=== PATIENT | male | born 1985 | race Two or more races ===

== ENCOUNTER 2019-03-26 23:27 | Inpatient (IN) | payer OTHER ==
[~2019-03-26] VITALS: Ht 180.3 cm; Wt 84.1 kg
[2019-03-26] MEDS ORDERED: CAPT12.55 PO (23:53)
[2019-03-27 00:11] LABS: BASOPHILS % (AUTO) 0.5 % (0.0-2.0); EOSINOPHILS % (AUTO) 0.1 % (1.0-6.0); HEMOGLOBIN 15.8 g/dL (13.5-17.5); LYMPHOCYTES # (AUTO) 2.1 K/uL (1.0-4.8); LYMPHOCYTES % (AUTO) 15.3 % (22.0-44.0); MEAN CORPUSCULAR HGB CONC 33.7 G/dL (31.0-37.0); MEAN CORPUSCULAR VOLUME 86 fL (80-100); MONOCYTES # (AUTO) 0.7 K/uL (0.1-1.0); NEUTROPHILS # (AUTO) 10.9 K/uL (1.8-7.7); NEUTROPHILS % (AUTO) 79.1 % (40.0-70.0); PLATELET COUNT (AUTO) 268 K/uL (150-450); RED BLOOD CELL COUNT(AUTO) 5.46 MIL/uL (4.50-5.90); RED CELL DISTRIBUTION WIDTH 13.5 % (11.5-14.5)
[2019-03-27 00:29] LABS: ANION GAP 10 mmol/L (8-16); CALCIUM, TOTAL 8.4 mg/dL (8.8-10.5); CARBON DIOXIDE 29 mmol/L (22-29); CHLORIDE 104 mmol/L (98-107); CREATININE 0.92 mg/dL (0.60-1.30); GLOMERULAR FILTR. RATE CALC > 60 mL/min (>60); GLUCOSE,RANDOM 105 mg/dL (70-110); SODIUM SERUM 143 mmol/L (136-145); UREA NITROGEN, BLOOD 11 mg/dL (7-18)
[2019-03-27] MEDS ORDERED: SODIUM CHLORIDE 0.9% 1,000 ML IV ONE ×3 (00:30→03:00)
[2019-03-27] MEDS ORDERED: ONDANSETRON HCL 4 MG/2 ML VIAL IVP ONE (00:30)
[2019-03-27 00:34] LABS: ALANINE AMINOTRANSFERASE 44 U/L (12-78); ALKALINE PHOSPHATASE 72 U/L (46-116); ASPARTATE AMINOTRANSFERASE 32 U/L (15-37); BILIRUBIN,TOTAL 0.4 mg/dL (0.1-1.0); TOTAL PROTEIN, SERUM 8.1 g/dL (6.4-8.2)
[2019-03-27] MEDS ORDERED: PB/HYOSCY/ATR/SCOP/LIDO/MAALOX 55 ML BOTTLE PO ONE (01:30)
[2019-03-27] MEDS ORDERED: KETOROLAC TROMETHAMINE 30 MG/ML VIAL IVP ONE (01:30)
[2019-03-27 03:33] LABS: APPEARANCE,URINE CLEAR (CLEAR); BILIRUBIN,URINE NEGATIVE (NEGATIVE); GLUCOSE, URINE (UA) NEGATIVE (NEGATIVE); KETONES,URINE TRACE mg/dL (NEGATIVE); LEUKOCYTE ESTERASE ,URINE NEGATIVE (NEGATIVE); NITRATE,URINE NEGATIVE (NEGATIVE); OCCULT BLOOD,URINE NEGATIVE (NEGATIVE); PROTEIN,URINE NEGATIVE (NEGATIVE)
[2019-03-27 03:38] LABS: AMPHET/METH SCREEN,URINE NEGATIVE (NEGATIVE); BARBITURATE SCREEN, URINE NEGATIVE (NEGATIVE); BENZODIAZEPINES SCREEN,URINE NEGATIVE (NEGATIVE); CANNABINOID SCREEN,URINE NEGATIVE (NEGATIVE); COCAINE SCREEN,URINE NEGATIVE (NEGATIVE); METHADONE SCREEN, URINE NEGATIVE (NEGATIVE); OPIATE SCREEN,URINE NEGATIVE (NEGATIVE)
[2019-03-27 03:48] LABS: PHENCYCLIDINE SCREEN,URINE NEGATIVE (NEGATIVE)
[2019-03-27] MEDS ORDERED: 0.9% SODIUM CHLORIDE 10 ML SYRINGE IVP PRN (06:00)
[2019-03-27 06:53] VITALS: BP 116/80
[2019-03-27 07:55] VITALS: BP 105/73
[2019-03-27] MEDS ORDERED: DEXTROSE 5%-0.45% SODIUM CHL 1,000 ML IV ONE (08:15)
[2019-03-27] MEDS ORDERED: ONDANSETRON HCL 4 MG/2 ML VIAL IM PRN (08:15)
[2019-03-27] MEDS: DOCUSATE SODIUM 100 MG CAPSULE PO SCH ×2 (09:16→20:04)
[2019-03-27] MEDS: FAMOTIDINE 20 MG TABLET PO SCH (09:16)
[2019-03-27] MEDS ORDERED: BISMUTH SUBSALICYLATE 524 MG/30 ML SUSPENSION UDCUP PO PRN (12:30)
[2019-03-27] MEDS: ACETAMINOPHEN 325 MG TABLET PO PRN (16:50)
[2019-03-27 16:55] VITALS: BP 109/65
[2019-03-27 19:40] VITALS: BP 108/61
[2019-03-27] MEDS: SERTRALINE HCL 50 MG TABLET PO SCH (20:04)
[2019-03-28 04:51] VITALS: BP 114/69
[2019-03-28 07:24] LABS: BASOPHILS % (AUTO) 0.5 % (0.0-2.0); HEMATOCRIT 45.3 % (41-53); HEMOGLOBIN 15.3 g/dL (13.5-17.5); LYMPHOCYTES # (AUTO) 2.1 K/uL (1.0-4.8); LYMPHOCYTES % (AUTO) 35.7 % (22.0-44.0); MEAN CORPUSCULAR HEMOGLOBIN 29.5 pg (26.0-34.0); MEAN CORPUSCULAR HGB CONC 33.7 G/dL (31.0-37.0); MEAN CORPUSCULAR VOLUME 87 fL (80-100); MONOCYTES # (AUTO) 0.4 K/uL (0.1-1.0); MONOCYTES % (AUTO) 6.6 % (2.0-9.0); NEUTROPHILS # (AUTO) 3.3 K/uL (1.8-7.7); NEUTROPHILS % (AUTO) 55.2 % (40.0-70.0); PLATELET COUNT (AUTO) 243 K/uL (150-450); RED BLOOD CELL COUNT(AUTO) 5.18 MIL/uL (4.50-5.90); RED CELL DISTRIBUTION WIDTH 13.5 % (11.5-14.5)
[2019-03-28 08:00] VITALS: BP 115/69
[2019-03-28] MEDS: FAMOTIDINE 20 MG TABLET PO SCH (08:16)
[2019-03-28] MEDS: SERTRALINE HCL 50 MG TABLET PO SCH ×2 (08:16→20:01)
[2019-03-28] MEDS: DOCUSATE SODIUM 100 MG CAPSULE PO SCH ×2 (08:16→21:00)
[2019-03-28] MEDS: ACETAMINOPHEN 325 MG TABLET PO PRN ×2 (12:09→19:34)
[2019-03-28] MEDS ORDERED: ONDANSETRON HCL 4 MG/2 ML VIAL IVP PRN (14:15)
[2019-03-28 15:27] VITALS: BP 112/69
[2019-03-28] MEDS: ALBUTEROL SULFATE HFA 90 MCG/PUFF 8 GM INHALER IH PRN (18:01)
[2019-03-28 19:30] VITALS: BP 118/68
[2019-03-29 04:00] VITALS: BP 110/73
[2019-03-29 07:30] VITALS: BP 112/71
[2019-03-29] MEDS: DOCUSATE SODIUM 100 MG CAPSULE PO SCH (08:45)
[2019-03-29] MEDS: FAMOTIDINE 20 MG TABLET PO SCH (08:45)
[2019-03-29] MEDS: SERTRALINE HCL 50 MG TABLET PO SCH (08:45)
[2019-03-29] MEDS ORDERED: SERT50TA12 PO (15:35)
[2019-03-29 15:41] VITALS: BP 126/78
[2019-03-29] MEDS: ACETAMINOPHEN 325 MG TABLET PO PRN (16:15)
[2019-03-29] MEDS: ALBUTEROL SULFATE HFA 90 MCG/PUFF 8 GM INHALER IH PRN (16:16)
== END 2019-03-29 16:40 | DRG 881 ==
LOC: EMS 23:27 → 6N 03-27 05:30 → 6S 03-27 06:41
PROVIDERS: ADMIT Internal Medicine; ATTEND Internal Medicine
DX: F32.9 Major depressive disorder, single episode, unspecified (principal); R45.851 Suicidal ideations; F43.12 Post-traumatic stress disorder, chronic; A08.4 Viral intestinal infection, unspecified; I10 Essential (primary) hypertension; F17.210 Nicotine dependence, cigarettes, uncomplicated; J45.909 Unspecified asthma, uncomplicated; Z79.899 Other long term (current) drug therapy; Z91.5 Personal history of self-harm
CPT/HCPCS: 51701; G0480; J1885; J2405; J3535; J7030

== ENCOUNTER 2019-05-14 23:37 | Inpatient (IN) | payer OTHER ==
[~2019-05-14] VITALS: Ht 180.3 cm; Wt 79.2 kg
[~2019-05-14 23:37] MED LIST: SERT50TA12 PO
[2019-05-15] MEDS ORDERED: BACITRACIN 0.9 GM PACKET OINTMENT TP ONE (01:15)
[2019-05-15] MEDS ORDERED: ONDANSETRON HCL 4 MG TABLET PO ONE (01:15)
[2019-05-15 01:49] LABS: BASOPHILS % (AUTO) 0.5 % (0.0-2.0); EOSINOPHILS % (AUTO) 0.3 % (1.0-6.0); HEMATOCRIT 46.1 % (41-53); HEMOGLOBIN 15.7 g/dL (13.5-17.5); LYMPHOCYTES # (AUTO) 1.9 K/uL (1.0-4.8); MEAN CORPUSCULAR HEMOGLOBIN 29.6 pg (26.0-34.0); MEAN CORPUSCULAR VOLUME 87 fL (80-100); MONOCYTES # (AUTO) 0.6 K/uL (0.1-1.0); MONOCYTES % (AUTO) 4.6 % (2.0-9.0); NEUTROPHILS % (AUTO) 79.6 % (40.0-70.0); PLATELET COUNT (AUTO) 247 K/uL (150-450); RED CELL DISTRIBUTION WIDTH 13.1 % (11.5-14.5)
[2019-05-15 01:54] LABS: ANION GAP 11 mmol/L (8-16); CALCIUM, TOTAL 8.8 mg/dL (8.8-10.5); CARBON DIOXIDE 27 mmol/L (22-29); CHLORIDE 104 mmol/L (98-107); CREATININE 1.02 mg/dL (0.60-1.30); GLOMERULAR FILTR. RATE CALC > 60 mL/min (>60); GLUCOSE,RANDOM 90 mg/dL (70-110); POTASSIUM 3.8 mmol/L (3.5-5.1); SODIUM SERUM 142 mmol/L (136-145); UREA NITROGEN, BLOOD 13 mg/dL (7-18)
[2019-05-15 02:01] LABS: ALANINE AMINOTRANSFERASE 53 U/L (12-78); ALBUMIN 3.9 g/dL (3.4-5.0); ALKALINE PHOSPHATASE 62 U/L (46-116); ASPARTATE AMINOTRANSFERASE 30 U/L (15-37); BILIRUBIN,TOTAL 0.6 mg/dL (0.1-1.0); TOTAL PROTEIN, SERUM 7.7 g/dL (6.4-8.2)
[2019-05-15] MEDS ORDERED: LORazepam 2 MG/ML VIAL ONE (02:01)
[2019-05-15] MEDS ORDERED: DiphenhydrAMINE HCL 50 MG/ML VIAL ONE (02:01)
[2019-05-15] MEDS ORDERED: HALOPERIDOL LACTATE 5 MG/ML VIAL ONE (02:01)
[2019-05-15] MEDS ORDERED: LORazepam 2 MG/ML VIAL IM ONE (02:15)
[2019-05-15] MEDS ORDERED: HALOPERIDOL LACTATE 5 MG/ML VIAL IM SCH (02:15)
[2019-05-15] MEDS ORDERED: DiphenhydrAMINE HCL 50 MG/ML VIAL IM SCH (02:15)
[2019-05-15] MEDS ORDERED: 0.9% SODIUM CHLORIDE 10 ML SYRINGE IVP PRN (02:30)
[2019-05-15] MEDS ORDERED: ONDANSETRON HCL 4 MG/2 ML VIAL IVP PRN ×2 (02:30→16:30)
[2019-05-15] MEDS ORDERED: ACETAMINOPHEN 325 MG TABLET PO PRN (02:30)
[2019-05-15 03:42] VITALS: BP 105/72
[2019-05-15 08:21] VITALS: BP 111/73
[2019-05-15 15:30] VITALS: BP 132/69
[2019-05-15] MEDS ORDERED: IPRATROPIUM BROMIDE 0.5 MG/2.5 ML NEB SOLUTION NEB PRN (16:30)
[2019-05-15] MEDS ORDERED: MAGNESIUM HYDROXIDE SUSPENSION 30 ML UDCUP PO PRN (16:30)
[2019-05-15] MEDS ORDERED: ALBUTEROL SULFATE 2.5 MG/0.5 ML NEB SOLUTION NEB PRN (16:30)
[2019-05-15] MEDS ORDERED: BISACODYL 10 MG RECTAL RECTAL SUPPOSITORY PR PRN (16:30)
[2019-05-15 20:33] VITALS: BP 126/75
[2019-05-15] MEDS: SERTRALINE HCL 50 MG TABLET PO SCH (20:59)
[2019-05-15] MEDS: DOCUSATE SODIUM 100 MG CAPSULE PO SCH (21:00)
[2019-05-15] MEDS: ZOLPIDEM TARTRATE 5 MG TABLET PO PRN (21:02)
[2019-05-16 05:58] VITALS: BP 117/70
[2019-05-16 07:58] VITALS: BP 116/76
[2019-05-16] MEDS: SERTRALINE HCL 50 MG TABLET PO SCH ×2 (08:45→20:42)
[2019-05-16] MEDS: DOCUSATE SODIUM 100 MG CAPSULE PO SCH ×2 (08:45→20:44)
[2019-05-16 16:20] VITALS: BP 118/82
[2019-05-16] MEDS: ACETAMINOPHEN 325 MG TABLET PO PRN (18:13)
[2019-05-16 20:12] VITALS: BP 119/78
[2019-05-16] MEDS: ZOLPIDEM TARTRATE 5 MG TABLET PO PRN (20:42)
[2019-05-17 03:58] VITALS: BP 114/75
[2019-05-17 08:13] VITALS: BP 121/82
[2019-05-17] MEDS: SERTRALINE HCL 50 MG TABLET PO SCH ×2 (08:17→20:29)
[2019-05-17] MEDS: DOCUSATE SODIUM 100 MG CAPSULE PO SCH ×2 (08:17→20:35)
[2019-05-17] MEDS: ONDANSETRON HCL 4 MG TABLET PO PRN ×2 (12:01→20:29)
[2019-05-17] MEDS: ACETAMINOPHEN 325 MG TABLET PO PRN (12:01)
[2019-05-17 17:09] VITALS: BP 126/77
[2019-05-17 19:15] VITALS: BP 132/83
[2019-05-17] MEDS: ZOLPIDEM TARTRATE 5 MG TABLET PO PRN (20:29)
[2019-05-18 04:29] VITALS: BP 117/74
[2019-05-18 06:57] LABS: BASOPHILS % (AUTO) 0.5 % (0.0-2.0); EOSINOPHILS % (AUTO) 1.5 % (1.0-6.0); HEMATOCRIT 45.2 % (41-53); HEMOGLOBIN 15.3 g/dL (13.5-17.5); LYMPHOCYTES # (AUTO) 2.9 K/uL (1.0-4.8); LYMPHOCYTES % (AUTO) 35.4 % (22.0-44.0); MEAN CORPUSCULAR HEMOGLOBIN 29.6 pg (26.0-34.0); MEAN CORPUSCULAR VOLUME 87 fL (80-100); MONOCYTES # (AUTO) 0.5 K/uL (0.1-1.0); MONOCYTES % (AUTO) 5.9 % (2.0-9.0); NEUTROPHILS # (AUTO) 4.6 K/uL (1.8-7.7); NEUTROPHILS % (AUTO) 56.7 % (40.0-70.0); PLATELET COUNT (AUTO) 238 K/uL (150-450); RED BLOOD CELL COUNT(AUTO) 5.19 MIL/uL (4.50-5.90); RED CELL DISTRIBUTION WIDTH 13.1 % (11.5-14.5)
[2019-05-18 07:36] VITALS: BP 120/72
[2019-05-18] MEDS: SERTRALINE HCL 50 MG TABLET PO SCH ×2 (08:56→20:24)
[2019-05-18] MEDS: ACETAMINOPHEN 325 MG TABLET PO PRN ×2 (08:56→20:24)
[2019-05-18] MEDS: DOCUSATE SODIUM 100 MG CAPSULE PO SCH ×2 (09:00→20:31)
[2019-05-18] MEDS: ONDANSETRON HCL 4 MG TABLET PO PRN ×2 (12:17→20:24)
[2019-05-18 12:18] VITALS: BP 125/80
[2019-05-18 16:32] VITALS: BP 122/74
[2019-05-18 19:25] VITALS: BP 116/80
[2019-05-18] MEDS ORDERED: MAG HYDROX/AL HYDROX/SIMETH ES 30 ML SUSPENSION UDCUP PO PRN (20:00)
[2019-05-18] MEDS: PANTOPRAZOLE SODIUM 40 MG DR TABLET PO SCH (20:23)
[2019-05-18] MEDS: ZOLPIDEM TARTRATE 5 MG TABLET PO PRN (20:24)
[2019-05-19 05:50] VITALS: BP 117/69
[2019-05-19] MEDS: PANTOPRAZOLE SODIUM 40 MG DR TABLET PO SCH (08:31)
[2019-05-19] MEDS: SERTRALINE HCL 50 MG TABLET PO SCH (08:31)
[2019-05-19] MEDS: DOCUSATE SODIUM 100 MG CAPSULE PO SCH (08:32)
[2019-05-19 08:48] VITALS: BP 104/72
[2019-05-19] MEDS ORDERED: RISP.5 PO (14:42)
[2019-05-19 15:28] VITALS: BP 129/78
[2019-05-19] MEDS: ACETAMINOPHEN 325 MG TABLET PO PRN (15:38)
== END 2019-05-19 18:30 | DRG 882 ==
LOC: EMS 23:37 → 6S 05-15 01:34
PROVIDERS: ADMIT Internal Medicine; ATTEND Internal Medicine
DX: F43.10 Post-traumatic stress disorder, unspecified (principal); R45.851 Suicidal ideations; I10 Essential (primary) hypertension; J45.909 Unspecified asthma, uncomplicated; K29.70 Gastritis, unspecified, without bleeding; K52.9 Noninfective gastroenteritis and colitis, unspecified; F17.210 Nicotine dependence, cigarettes, uncomplicated; F41.0 Panic disorder [episodic paroxysmal anxiety]; F41.9 Anxiety disorder, unspecified; X58.XXXA Exposure to other specified factors, initial encounter; Z91.5 Personal history of self-harm
CPT/HCPCS: 82271; 94640; 96372; G0480; J1200; J1630; J2060; Q0162

== ENCOUNTER 2019-05-19 22:03 | Inpatient (IN) | payer OTHER ==
[~2019-05-19] VITALS: Ht 175.3 cm; Wt 81.0 kg
[~2019-05-19 22:03] MED LIST changes: +RISP.5 PO
[2019-05-19] MEDS ORDERED: PERTUSS(ACELL),DIPH,TET VAC/PF 0.5 ML VIAL IM ONE (23:15)
[2019-05-20] MEDS ORDERED: HALOPERIDOL LACTATE 5 MG/ML VIAL ONE (00:09)
[2019-05-20] MEDS ORDERED: DiphenhydrAMINE HCL 50 MG/ML VIAL ONE (00:09)
[2019-05-20] MEDS ORDERED: LORazepam 2 MG/ML VIAL ONE (00:09)
[2019-05-20] MEDS ORDERED: HALOPERIDOL LACTATE 5 MG/ML VIAL IM ONE (00:15)
[2019-05-20] MEDS ORDERED: DiphenhydrAMINE HCL 50 MG/ML VIAL IM ONE (00:15)
[2019-05-20] MEDS ORDERED: LORazepam 2 MG/ML VIAL IM ONE (00:15)
[2019-05-20] MEDS ORDERED: 0.9% SODIUM CHLORIDE 10 ML SYRINGE IVP PRN (00:30)
[2019-05-20] MEDS ORDERED: ACETAMINOPHEN 325 MG TABLET PO PRN (00:30)
[2019-05-20 02:48] VITALS: BP 105/68
[2019-05-20] MEDS ORDERED: MAGNESIUM HYDROXIDE SUSPENSION 30 ML UDCUP PO PRN (07:30)
[2019-05-20 07:44] VITALS: BP 122/86
[2019-05-20 15:02] VITALS: BP 118/78
[2019-05-20 19:33] VITALS: BP 118/67
[2019-05-20] MEDS: ACETAMINOPHEN 325 MG TABLET PO PRN (20:57)
[2019-05-21 04:38] VITALS: BP 106/57
[2019-05-21 10:54] VITALS: BP 108/66
[2019-05-21 15:30] VITALS: BP 124/84
[2019-05-21] MEDS: ONDANSETRON HCL 4 MG TABLET PO PRN ×2 (15:44→22:11)
[2019-05-21] MEDS: ACETAMINOPHEN 325 MG TABLET PO PRN ×2 (15:48→21:06)
[2019-05-21 20:05] VITALS: BP 114/75
[2019-05-21 21:06] VITALS: BP 118/74
[2019-05-21 22:06] VITALS: BP 116/70
[2019-05-22 06:30] VITALS: BP 114/68
[2019-05-22 07:25] VITALS: BP 111/73
[2019-05-22] MEDS: ONDANSETRON HCL 4 MG TABLET PO PRN (08:32)
[2019-05-22] MEDS: ACETAMINOPHEN 325 MG TABLET PO PRN ×2 (08:32→13:19)
[2019-05-22] MEDS ORDERED: HALOPERIDOL 5 MG TABLET PO PRN (15:45)
[2019-05-22] MEDS ORDERED: HydrOXYzine PAMOATE 50 MG CAPSULE PO PRN (15:45)
[2019-05-22] MEDS: ALBUTEROL SULFATE HFA 90 MCG/PUFF 8 GM INHALER IH PRN (18:05)
[2019-05-22 19:18] VITALS: BP 125/78
[2019-05-22] MEDS: SERTRALINE HCL 50 MG TABLET PO SCH (20:06)
[2019-05-22] MEDS: RisperiDONE 0.5 MG TABLET PO SCH (20:06)
[2019-05-23 05:28] VITALS: BP 123/71
[2019-05-23 07:30] VITALS: BP 113/76
[2019-05-23] MEDS: SERTRALINE HCL 50 MG TABLET PO SCH ×2 (08:03→20:03)
[2019-05-23] MEDS: ALBUTEROL SULFATE HFA 90 MCG/PUFF 8 GM INHALER IH PRN ×2 (14:13→17:53)
[2019-05-23 15:29] VITALS: BP 118/66
[2019-05-23 20:00] VITALS: BP 112/70
[2019-05-23] MEDS: RisperiDONE 0.5 MG TABLET PO SCH (20:03)
[2019-05-24 05:45] VITALS: BP 107/64
[2019-05-24 07:52] VITALS: BP 116/73
[2019-05-24] MEDS: SERTRALINE HCL 50 MG TABLET PO SCH (08:26)
[2019-05-24] MEDS: ALBUTEROL SULFATE HFA 90 MCG/PUFF 8 GM INHALER IH PRN ×2 (09:05→14:14)
[2019-05-24] MEDS: ONDANSETRON HCL 4 MG TABLET PO PRN (09:09)
[2019-05-24 12:46] VITALS: BP 114/71
[2019-05-24 16:17] VITALS: BP 128/78
== END 2019-05-24 16:30 | DRG 885 ==
LOC: EMS 22:04 → 6S 05-20 00:25
PROVIDERS: ADMIT Internal Medicine; ATTEND Internal Medicine
DX: F33.3 Major depressive disorder, recurrent, severe with psychotic symptoms (principal); R45.851 Suicidal ideations; J45.909 Unspecified asthma, uncomplicated; I10 Essential (primary) hypertension; F17.210 Nicotine dependence, cigarettes, uncomplicated; F43.12 Post-traumatic stress disorder, chronic; X58.XXXA Exposure to other specified factors, initial encounter; Z71.6 Tobacco abuse counseling; Z91.013 Allergy to seafood
CPT/HCPCS: J1200; J1630; J2060; J3535; Q0162

== ENCOUNTER 2019-07-04 14:46 | Inpatient (IN) | payer OTHER ==
[~2019-07-04] VITALS: Ht 177.8 cm; Wt 80.3 kg
[2019-07-04] MEDS ORDERED: OMEP20 PO (15:09)
[2019-07-04] MEDS ORDERED: COMBISP IH (15:09)
[2019-07-04] MEDS ORDERED: SERT100T12 PO (15:09)
[2019-07-04] MEDS ORDERED: IBUP-2492 PO (15:09)
[2019-07-04] MEDS ORDERED: MAG-136 PO (15:09)
[2019-07-04] MEDS ORDERED: MAGNESIUM HYDROXIDE SUSPENSION 30 ML UDCUP PO PRN (15:45)
[2019-07-04 17:14] VITALS: BP 130/83
[2019-07-04 18:20] LABS: BASOPHILS % (AUTO) 0.3 % (0.0-2.0); EOSINOPHILS % (AUTO) 0.4 % (1.0-6.0); HEMATOCRIT 47.1 % (41-53); HEMOGLOBIN 15.6 g/dL (13.5-17.5); LYMPHOCYTES # (AUTO) 1.7 K/uL (1.0-4.8); LYMPHOCYTES % (AUTO) 17.9 % (22.0-44.0); MEAN CORPUSCULAR HEMOGLOBIN 28.6 pg (26.0-34.0); MEAN CORPUSCULAR HGB CONC 33.1 G/dL (31.0-37.0); MEAN CORPUSCULAR VOLUME 87 fL (80-100); MONOCYTES # (AUTO) 0.4 K/uL (0.1-1.0); MONOCYTES % (AUTO) 4.5 % (2.0-9.0); NEUTROPHILS # (AUTO) 7.2 K/uL (1.8-7.7); NEUTROPHILS % (AUTO) 76.9 % (40.0-70.0); PLATELET COUNT (AUTO) 231 K/uL (150-450); RED BLOOD CELL COUNT(AUTO) 5.44 MIL/uL (4.50-5.90); RED CELL DISTRIBUTION WIDTH 12.8 % (11.5-14.5)
[2019-07-04 18:36] LABS: ANION GAP 12 mmol/L (8-16); CALCIUM, TOTAL 8.5 mg/dL (8.8-10.5); CARBON DIOXIDE 27 mmol/L (22-29); CHLORIDE 104 mmol/L (98-107); CREATININE 0.89 mg/dL (0.60-1.30); GLOMERULAR FILTR. RATE CALC > 60 mL/min (>60); GLUCOSE,RANDOM 93 mg/dL (70-110); POTASSIUM 3.8 mmol/L (3.5-5.1); SODIUM SERUM 143 mmol/L (136-145); UREA NITROGEN, BLOOD 12 mg/dL (7-18)
[2019-07-04 18:41] LABS: ALANINE AMINOTRANSFERASE 28 U/L (12-78); ALBUMIN 4.1 g/dL (3.4-5.0); ALKALINE PHOSPHATASE 58 U/L (46-116); ASPARTATE AMINOTRANSFERASE 24 U/L (15-37); BILIRUBIN,TOTAL 0.5 mg/dL (0.1-1.0); TOTAL PROTEIN, SERUM 7.6 g/dL (6.4-8.2)
[2019-07-04] MEDS ORDERED: INFLUENZA VIRUS VACCINE QVS 2019-20 (3YR+)/PF 60 MCG/0.5 ML SYRINGE IM ONE (18:45)
[2019-07-04 20:17] VITALS: BP 115/67
[2019-07-04 20:17] LABS: AMPHET/METH SCREEN,URINE NEGATIVE (NEGATIVE); BARBITURATE SCREEN, URINE NEGATIVE (NEGATIVE); BENZODIAZEPINES SCREEN,URINE NEGATIVE (NEGATIVE); CANNABINOID SCREEN,URINE NEGATIVE (NEGATIVE); COCAINE SCREEN,URINE NEGATIVE (NEGATIVE); METHADONE SCREEN, URINE NEGATIVE (NEGATIVE); OPIATE SCREEN,URINE NEGATIVE (NEGATIVE)
[2019-07-04 20:20] LABS: PHENCYCLIDINE SCREEN,URINE NEGATIVE (NEGATIVE)
[2019-07-04] MEDS: ACETAMINOPHEN 325 MG TABLET PO PRN (23:59)
[2019-07-05 04:53] VITALS: BP 108/67
[2019-07-05 07:38] VITALS: BP 116/64
[2019-07-05] MEDS: ACETAMINOPHEN 325 MG TABLET PO PRN ×2 (08:29→20:38)
[2019-07-05] MEDS: RisperiDONE 1 MG TABLET PO SCH (10:46)
[2019-07-05] MEDS: SERTRALINE HCL 50 MG TABLET PO SCH (10:46)
[2019-07-05] MEDS ORDERED: ALBUTEROL SULFATE/IPRATROPIUM 100-20 MCG/SPRAY 4 GM INHALER IH PRN (13:15)
[2019-07-05 16:08] VITALS: BP 100/59
[2019-07-05 19:18] VITALS: BP 107/55
[2019-07-06 05:40] VITALS: BP 113/72
[2019-07-06 07:41] VITALS: BP 104/62
[2019-07-06] MEDS: RisperiDONE 1 MG TABLET PO SCH (09:05)
[2019-07-06] MEDS: SERTRALINE HCL 50 MG TABLET PO SCH (09:06)
[2019-07-06] MEDS: ACETAMINOPHEN 325 MG TABLET PO PRN ×2 (09:12→20:11)
[2019-07-06 15:35] VITALS: BP 111/71
[2019-07-06 20:04] VITALS: BP 110/68
[2019-07-07 05:24] VITALS: BP 120/69
[2019-07-07 07:55] VITALS: BP 125/85
[2019-07-07] MEDS: ACETAMINOPHEN 325 MG TABLET PO PRN ×2 (08:09→20:22)
[2019-07-07] MEDS: SERTRALINE HCL 50 MG TABLET PO SCH (08:09)
[2019-07-07] MEDS: RisperiDONE 1 MG TABLET PO SCH (08:09)
[2019-07-07 15:00] VITALS: BP 119/79
[2019-07-07 20:35] VITALS: BP 116/65
[2019-07-07] MEDS: ZOLPIDEM TARTRATE 5 MG TABLET PO PRN (20:55)
[2019-07-08 04:30] VITALS: BP 109/65
[2019-07-08 07:56] VITALS: BP 101/66
[2019-07-08] MEDS: RisperiDONE 1 MG TABLET PO SCH (08:24)
[2019-07-08] MEDS: SERTRALINE HCL 50 MG TABLET PO SCH (08:24)
[2019-07-08 15:58] VITALS: BP 114/63
[2019-07-08 20:00] VITALS: BP 131/70
[2019-07-09 04:00] VITALS: BP 110/56
[2019-07-09] MEDS: RisperiDONE 1 MG TABLET PO SCH (07:55)
[2019-07-09] MEDS: SERTRALINE HCL 50 MG TABLET PO SCH (07:55)
[2019-07-09] MEDS: ACETAMINOPHEN 325 MG TABLET PO PRN ×2 (07:57→18:42)
[2019-07-09 08:15] VITALS: BP 124/69
[2019-07-09 15:58] VITALS: BP 111/74
[2019-07-09 19:50] VITALS: BP 116/72
[2019-07-09] MEDS: IBUPROFEN 400 MG TABLET PO PRN (20:39)
[2019-07-09] MEDS: ZOLPIDEM TARTRATE 5 MG TABLET PO PRN (20:39)
[2019-07-10 05:02] VITALS: BP 112/66
[2019-07-10] MEDS: SERTRALINE HCL 50 MG TABLET PO SCH (09:17)
[2019-07-10] MEDS: RisperiDONE 1 MG TABLET PO SCH (09:17)
[2019-07-10] MEDS: IBUPROFEN 400 MG TABLET PO PRN (09:19)
== END 2019-07-10 16:25 | DRG 885 ==
LOC: EDUNIT# 14:46 → EMS 14:49 → 6S 16:21
PROVIDERS: ADMIT Internal Medicine; ATTEND Internal Medicine
DX: F25.1 Schizoaffective disorder, depressive type (principal); F32.9 Major depressive disorder, single episode, unspecified; M25.522 Pain in left elbow; S61.512A Laceration without foreign body of left wrist, initial encounter; S61.511A Laceration without foreign body of right wrist, initial encounter; X58.XXXA Exposure to other specified factors, initial encounter; I10 Essential (primary) hypertension; J45.909 Unspecified asthma, uncomplicated; S00.33XA Contusion of nose, initial encounter; F17.210 Nicotine dependence, cigarettes, uncomplicated; Z79.899 Other long term (current) drug therapy; Y93.89 Activity, other specified; Y92.89 Other specified places as the place of occurrence of the external cause; Y99.8 Other external cause status; Z91.013 Allergy to seafood; Z91.018 Allergy to other foods
CPT/HCPCS: 80307; G0480

== ENCOUNTER 2019-10-14 03:59 | Inpatient (IN) | payer OTHER ==
[~2019-10-14] VITALS: Ht 175.3 cm; Wt 92.9 kg
[~2019-10-14 03:59] MED LIST changes: +COMBISP IH; +IBUP-2492 PO; +MAG-136 PO; +OMEP20 PO; -RISP.5 PO; +RISP0.5T20 PO; +SERT100T12 PO; -SERT50TA12 PO
[2019-10-14] MEDS ORDERED: 0.9% SODIUM CHLORIDE 10 ML SYRINGE IVP PRN (04:15)
[2019-10-14] MEDS ORDERED: ONDANSETRON HCL 4 MG/2 ML VIAL IVP PRN ×2 (04:15→20:45)
[2019-10-14] MEDS ORDERED: ACETAMINOPHEN 325 MG TABLET PO PRN ×3 (04:15→20:45)
[2019-10-14] MEDS ORDERED: AUD NEB (04:17)
[2019-10-14] MEDS ORDERED: IBUP-2071 PO (04:17)
[2019-10-14] MEDS ORDERED: DIPH25 PO (04:17)
[2019-10-14] MEDS ORDERED: ALBU8HFA IH (04:17)
[2019-10-14] MEDS ORDERED: DOCU-275 PO (04:17)
[2019-10-14 04:27] LABS: BASOPHILS % (AUTO) 0.6 % (0.0-2.0); EOSINOPHILS % (AUTO) 0.5 % (1.0-6.0); HEMATOCRIT 42.1 % (41-53); HEMOGLOBIN 14.6 g/dL (13.5-17.5); LYMPHOCYTES # (AUTO) 2.2 K/uL (1.0-4.8); MEAN CORPUSCULAR HEMOGLOBIN 29.9 pg (26.0-34.0); MEAN CORPUSCULAR HGB CONC 34.7 G/dL (31.0-37.0); MEAN CORPUSCULAR VOLUME 86 fL (80-100); MONOCYTES # (AUTO) 0.6 K/uL (0.1-1.0); MONOCYTES % (AUTO) 6.2 % (2.0-9.0); NEUTROPHILS # (AUTO) 6.4 K/uL (1.8-7.7); NEUTROPHILS % (AUTO) 68.7 % (40.0-70.0); PLATELET COUNT (AUTO) 232 K/uL (150-450); RED BLOOD CELL COUNT(AUTO) 4.88 MIL/uL (4.50-5.90); RED CELL DISTRIBUTION WIDTH 13.3 % (11.5-14.5)
[2019-10-14 04:35] LABS: ANION GAP 8 mmol/L (8-16); CALCIUM, TOTAL 8.5 mg/dL (8.8-10.5); CARBON DIOXIDE 30 mmol/L (22-29); CHLORIDE 102 mmol/L (98-107); CREATININE 1.06 mg/dL (0.60-1.30); GLOMERULAR FILTR. RATE CALC > 60 mL/min (>60); GLUCOSE,RANDOM 102 mg/dL (70-110); POTASSIUM 3.9 mmol/L (3.5-5.1); SODIUM SERUM 140 mmol/L (136-145); UREA NITROGEN, BLOOD 11 mg/dL (7-18)
[2019-10-14 04:41] LABS: ALANINE AMINOTRANSFERASE 69 U/L (12-78); ALBUMIN 3.8 g/dL (3.4-5.0); ALKALINE PHOSPHATASE 59 U/L (46-116); ASPARTATE AMINOTRANSFERASE 29 U/L (15-37); BILIRUBIN,TOTAL 0.3 mg/dL (0.1-1.0); TOTAL PROTEIN, SERUM 7.7 g/dL (6.4-8.2)
[2019-10-14 08:41] VITALS: BP 138/91
[2019-10-14 15:24] VITALS: BP 113/72
[2019-10-14 20:00] VITALS: BP 128/74
[2019-10-14] MEDS: DiphenhydrAMINE HCL 25 MG CAPSULE PO PRN (20:23)
[2019-10-14] MEDS ORDERED: BISACODYL 10 MG RECTAL RECTAL SUPPOSITORY PR PRN (20:45)
[2019-10-14] MEDS ORDERED: IPRATROPIUM BROMIDE 0.5 MG/2.5 ML NEB SOLUTION NEB PRN (20:45)
[2019-10-14] MEDS ORDERED: MAGNESIUM HYDROXIDE SUSPENSION 30 ML UDCUP PO PRN (20:45)
[2019-10-14] MEDS ORDERED: ALBUTEROL SULFATE 2.5 MG/0.5 ML NEB SOLUTION NEB PRN (20:45)
[2019-10-15] MEDS: ZOLPIDEM TARTRATE 5 MG TABLET PO PRN (00:09)
[2019-10-15] MEDS: HEPARIN SODIUM,PORCINE 5,000 UNITS/ML VIAL SQ SCH ×4 (00:09→23:26)
[2019-10-15 01:17] LABS: AMPHET/METH SCREEN,URINE NEGATIVE (NEGATIVE); BARBITURATE SCREEN, URINE NEGATIVE (NEGATIVE); BENZODIAZEPINES SCREEN,URINE NEGATIVE (NEGATIVE); CANNABINOID SCREEN,URINE NEGATIVE (NEGATIVE); COCAINE SCREEN,URINE NEGATIVE (NEGATIVE); METHADONE SCREEN, URINE NEGATIVE (NEGATIVE); OPIATE SCREEN,URINE NEGATIVE (NEGATIVE); PHENCYCLIDINE SCREEN,URINE NEGATIVE (NEGATIVE)
[2019-10-15 05:27] VITALS: BP 130/79
[2019-10-15 08:12] VITALS: BP 110/65
[2019-10-15] MEDS: SERTRALINE HCL 50 MG TABLET PO SCH (08:37)
[2019-10-15] MEDS: OMEPRAZOLE 20 MG CAPSULE PO SCH (08:37)
[2019-10-15] MEDS: DOCUSATE SODIUM 100 MG CAPSULE PO SCH (08:37)
[2019-10-15] MEDS: SERTRALINE HCL 100 MG TABLET PO SCH (08:38)
[2019-10-15] MEDS: IBUPROFEN 800 MG TABLET PO PRN (15:50)
[2019-10-15] MEDS: DiphenhydrAMINE HCL 25 MG CAPSULE PO PRN (15:50)
[2019-10-15 16:00] VITALS: BP 109/59
[2019-10-15 20:10] VITALS: BP 119/60
[2019-10-16] MEDS: ZOLPIDEM TARTRATE 5 MG TABLET PO PRN (02:46)
[2019-10-16 04:52] VITALS: BP 117/79
[2019-10-16] MEDS: HEPARIN SODIUM,PORCINE 5,000 UNITS/ML VIAL SQ SCH ×3 (07:56→23:29)
[2019-10-16] MEDS: SERTRALINE HCL 50 MG TABLET PO SCH (07:57)
[2019-10-16] MEDS: DOCUSATE SODIUM 100 MG CAPSULE PO SCH ×2 (07:57→08:03)
[2019-10-16] MEDS: OMEPRAZOLE 20 MG CAPSULE PO SCH (07:57)
[2019-10-16] MEDS: SERTRALINE HCL 100 MG TABLET PO SCH (07:57)
[2019-10-16 08:16] VITALS: BP 116/70
[2019-10-16 15:52] VITALS: BP_SYST 121; BP_SYST 127; BP_DIAS 50; BP_DIAS 71
[2019-10-16 20:40] VITALS: BP 130/77
[2019-10-16] MEDS: IBUPROFEN 800 MG TABLET PO PRN (20:50)
[2019-10-16] MEDS: DiphenhydrAMINE HCL 25 MG CAPSULE PO PRN (21:43)
[2019-10-17 05:11] VITALS: BP 113/72
[2019-10-17 08:08] VITALS: BP 122/78
[2019-10-17] MEDS: HEPARIN SODIUM,PORCINE 5,000 UNITS/ML VIAL SQ SCH ×2 (08:14→15:23)
[2019-10-17] MEDS: SERTRALINE HCL 50 MG TABLET PO SCH (08:14)
[2019-10-17] MEDS: IBUPROFEN 800 MG TABLET PO PRN ×2 (08:14→20:00)
[2019-10-17] MEDS: SERTRALINE HCL 100 MG TABLET PO SCH (08:14)
[2019-10-17] MEDS: DOCUSATE SODIUM 100 MG CAPSULE PO SCH (08:14)
[2019-10-17] MEDS: OMEPRAZOLE 20 MG CAPSULE PO SCH (08:14)
[2019-10-17 15:04] VITALS: BP 118/76
[2019-10-17] MEDS: DiphenhydrAMINE HCL 25 MG CAPSULE PO PRN (20:00)
[2019-10-17 20:04] VITALS: BP 125/80
[2019-10-18 03:20] VITALS: BP 121/75
[2019-10-18] MEDS: IBUPROFEN 800 MG TABLET PO PRN (03:23)
[2019-10-18 08:08] VITALS: BP 120/85
[2019-10-18] MEDS: SERTRALINE HCL 100 MG TABLET PO SCH (08:13)
[2019-10-18] MEDS: OMEPRAZOLE 20 MG CAPSULE PO SCH (08:13)
[2019-10-18] MEDS: DOCUSATE SODIUM 100 MG CAPSULE PO SCH (08:13)
[2019-10-18] MEDS: SERTRALINE HCL 50 MG TABLET PO SCH (08:14)
[2019-10-18] MEDS: HEPARIN SODIUM,PORCINE 5,000 UNITS/ML VIAL SQ SCH ×2 (08:21)
[2019-10-18] MEDS ORDERED: SERT50TA12 PO (12:15)
[2019-10-18] MEDS ORDERED: RISP1TAB27 PO ×2 (12:15→20:43)
[2019-10-18] MEDS ORDERED: RisperiDONE 1 MG TABLET PO SCH (21:00)
== END 2019-10-18 15:27 | DRG 881 ==
LOC: EMS 03:59 → 6S 04:30 → 6N 10-16 08:30 → 6S 10-16 21:15
PROVIDERS: ADMIT Hospitalist; ATTEND Hospitalist
DX: F32.9 Major depressive disorder, single episode, unspecified (principal); R45.851 Suicidal ideations; R44.0 Auditory hallucinations; T14.8XXA Other injury of unspecified body region, initial encounter; I10 Essential (primary) hypertension; J45.909 Unspecified asthma, uncomplicated; X58.XXXA Exposure to other specified factors, initial encounter; Y93.89 Activity, other specified; Y92.89 Other specified places as the place of occurrence of the external cause; Y99.8 Other external cause status; Z03.818 Encounter for observation for suspected exposure to other biological agents ruled out
CPT/HCPCS: 87430; 94640; G0480; J1644; 36415-L1; 36415-TC; 71045-TC; 87635; J7613